=== PATIENT | male | born 1945 | race African-American/Black ===

== ENCOUNTER 2022-04-11 15:07 | Inpatient (IN) | payer OTHER, MEDICAID ==
[2022-04-11 15:52] LABS: #Eosinphils 0.5 thou/uL (0.0-0.7); #Lymphocytes 0.9 thou/uL (1.20-3.40); #Monocytes 0.5 thou/uL (0.11-0.59); #Neutrophils 6.2 thou/uL (1.40-6.50); %Basophils 0.5 % (0.0-1.0); %Eosinophils 5.6 % (0.0-10.0); %Lymphocytes 11.6 % (21.0-51.0); %Monocytes 5.5 % (0.0-10.0); %Neutrophils 76.8 % (42.0-75.0); Hemoglobin 12.5 g/dL (14.0-18.0); Mean Corpuscular HGB CONC 31.4 g/dL (32.0-36.0); Mean Corpuscular Hemoglobin 28.8 pg (27.0-31.0); Mean Corpuscular Volume 91.5 fL (78.0-98.0); Mean Platelet Volume 6.7 fL (7.4-10.4); Platelet Count 306 thou/uL (130-400); RBC Distribution Width 15.2 % (11.5-14.5); Red Blood Cell (RBC) Count 4.34 mill/uL (4.70-6.10); White Blood Cell (WBC) Count 8.1 thou/uL (4.8-10.8)
[2022-04-11 16:13] LABS: ALT (SGPT) 14 U/L (8-55); AST (SGOT) 28 U/L (5-34); Albumin 3.6 g/dL (3.4-4.8); Alkaline Phosphatase 160 U/L (40-110); Anion Gap 14 mmol/L (10-20); BUN (Urea Nitrogen) 36 mg/dL (8.4-25.7); Bilirubin, Total 0.6 mg/dL (0.2-1.2); Calc. Creatinine Clearance 0 mL/min (70-130); Calcium 8.9 mg/dL (7.8-10.44); Carbon Dioxide 17 mmol/L (23-31); Chloride 111 mmol/L (98-107); Estimated GFR 20; Globulin 5.6 g/dL (2.4-3.5); Glucose 71 mg/dL (83-110); Potassium 4.8 mmol/L (3.5-5.1); Protein, Total 9.2 g/dL (5.8-8.1); Sodium 137 mmol/L (136-145)
[2022-04-11 16:27] LABS: CKMB 4.3 ng/mL (0-6.6)
[2022-04-11] MEDS ORDERED: hydrALAZINE 20 MG/ML VIAL ONE (17:03)
[2022-04-11] MEDS ORDERED: hydrALAZINE 20 MG/ML VIAL SLOW IVP PRN (17:36)
[2022-04-11] MEDS ORDERED: Acetaminophen 500 MG TAB PO PRN (17:36)
[2022-04-11] MEDS ORDERED: Nitroglycerin 0.4 MG TAB (25 Tab Bottle) SL PRN (17:36)
[2022-04-11 18:04] LABS: Magnesium 1.8 mg/dL (1.6-2.6)
[2022-04-11] MEDS ORDERED: NIFEdipine XL 60 MG TAB PO SCH (20:15)
[2022-04-11 20:17] LABS: Troponin I 0.091 ng/mL (< 0.028)
[2022-04-11] MEDS: Heparin 5,000 UNITS/ML VIAL SC SCH (20:26)
[2022-04-11] MEDS ORDERED: Isosorbide Dinitrate 20 MG TAB PO SCH (22:30)
[2022-04-11] MEDS ORDERED: Carvedilol 25 MG TAB PO SCH (22:30)
[2022-04-11 22:33] LABS: Troponin I 0.075 ng/mL (< 0.028)
[2022-04-12 05:32] LABS: #Eosinphils 0.3 thou/uL (0.0-0.7); #Lymphocytes 0.8 thou/uL (1.20-3.40); #Monocytes 0.5 thou/uL (0.11-0.59); %Basophils 0.4 % (0.0-1.0); %Eosinophils 3.8 % (0.0-10.0); %Lymphocytes 11.7 % (21.0-51.0); %Monocytes 8.3 % (0.0-10.0); %Neutrophils 75.8 % (42.0-75.0); Hemoglobin 10.1 g/dL (14.0-18.0); Mean Corpuscular HGB CONC 31.1 g/dL (32.0-36.0); Mean Corpuscular Hemoglobin 28.7 pg (27.0-31.0); Mean Corpuscular Volume 92.1 fL (78.0-98.0); Platelet Count 262 thou/uL (130-400); RBC Distribution Width 15.5 % (11.5-14.5); Red Blood Cell (RBC) Count 3.53 mill/uL (4.70-6.10); White Blood Cell (WBC) Count 6.6 thou/uL (4.8-10.8)
[2022-04-12 05:49] LABS: ALT (SGPT) 11 U/L (8-55); AST (SGOT) 17 U/L (5-34); Albumin 2.8 g/dL (3.4-4.8); Alkaline Phosphatase 112 U/L (40-110); Anion Gap 15 mmol/L (10-20); BUN (Urea Nitrogen) 43 mg/dL (8.4-25.7); Bilirubin, Total 0.5 mg/dL (0.2-1.2); Calc. Creatinine Clearance 16 mL/min (70-130); Calcium 8.2 mg/dL (7.8-10.44); Carbon Dioxide 14 mmol/L (23-31); Chloride 112 mmol/L (98-107); Estimated GFR 17; Globulin 4.1 g/dL (2.4-3.5); Glucose 113 mg/dL (83-110); Potassium 4.9 mmol/L (3.5-5.1); Protein, Total 6.9 g/dL (5.8-8.1); Sodium 136 mmol/L (136-145)
[2022-04-12] MEDS ORDERED: Furosemide 40 MG/4 ML VIAL SLOW IVP SCH (06:00)
[2022-04-12] MEDS ORDERED: Carvedilol 25 MG TAB PO SCH (09:00)
[2022-04-12] MEDS ORDERED: Isosorbide Dinitrate 20 MG TAB PO SCH (09:00)
[2022-04-12] MEDS ORDERED: NIFEdipine XL 60 MG TAB PO SCH (09:00)
[2022-04-12] MEDS: Heparin 5,000 UNITS/ML VIAL SC SCH ×3 (09:21→21:06)
[2022-04-12] MEDS: NIFEdipine XL 60 MG TAB PO SCH (09:21)
[2022-04-12] MEDS: Tamsulosin HCl 0.4 MG CAP PO SCH ×2 (09:21→21:07)
[2022-04-12] MEDS: Aspirin Chewable 81 MG TAB PO SCH (09:22)
[2022-04-12] MEDS: Isosorbide Dinitrate 20 MG TAB PO SCH ×2 (09:22→21:07)
[2022-04-12] MEDS: Sodium Bicarbonate 150 MEQ in Dextrose 5% in Water 1,000 ML IV SCH (13:38)
[2022-04-12 14:22] LABS: Creatinine, Urine 100.09 mg/dL (63-166)
[2022-04-12] MEDS ORDERED: Dextrose 50% Abboject 50 ML SYRINGE SLOW IVP PRN (15:20)
[2022-04-12] MEDS ORDERED: Dextrose 5% in Water 1,000 ML IV PRN (15:20)
[2022-04-12] MEDS ORDERED: HumaLOG 300 UNITS/3 ML VIAL SC PRN (15:20)
[2022-04-12] MEDS: Carvedilol 6.25 MG TAB PO SCH (17:52)
[2022-04-12] MEDS: Mirtazapine 15 MG Soltab PO SCH (21:07)
[2022-04-12] MEDS: hydrALAZINE 25 MG TAB PO SCH (21:07)
[2022-04-13] MEDS: Sodium Bicarbonate 150 MEQ in Dextrose 5% in Water 1,000 ML IV SCH (06:30)
[2022-04-13] MEDS: Aspirin Chewable 81 MG TAB PO SCH (08:55)
[2022-04-13] MEDS: Tamsulosin HCl 0.4 MG CAP PO SCH ×2 (08:55→20:38)
[2022-04-13] MEDS: NIFEdipine XL 60 MG TAB PO SCH (08:55)
[2022-04-13] MEDS: Isosorbide Dinitrate 20 MG TAB PO SCH ×2 (08:55→20:38)
[2022-04-13] MEDS: Heparin 5,000 UNITS/ML VIAL SC SCH ×3 (08:56→20:38)
[2022-04-13] MEDS: Carvedilol 6.25 MG TAB PO SCH ×2 (08:56→17:19)
[2022-04-13] MEDS: hydrALAZINE 25 MG TAB PO SCH ×2 (08:56→20:38)
[2022-04-13 09:47] LABS: #Eosinphils 0.3 thou/uL (0.0-0.7); #Monocytes 0.5 thou/uL (0.11-0.59); #Neutrophils 3.5 thou/uL (1.40-6.50); %Basophils 0.9 % (0.0-1.0); %Eosinophils 6.1 % (0.0-10.0); %Lymphocytes 19.2 % (21.0-51.0); %Monocytes 8.4 % (0.0-10.0); %Neutrophils 65.5 % (42.0-75.0); Hemoglobin 9.8 g/dL (14.0-18.0); Mean Corpuscular HGB CONC 31.2 g/dL (32.0-36.0); Mean Corpuscular Hemoglobin 28.8 pg (27.0-31.0); Mean Corpuscular Volume 92.2 fL (78.0-98.0); Mean Platelet Volume 6.7 fL (7.4-10.4); Platelet Count 245 thou/uL (130-400); RBC Distribution Width 15.2 % (11.5-14.5); Red Blood Cell (RBC) Count 3.41 mill/uL (4.70-6.10); White Blood Cell (WBC) Count 5.4 thou/uL (4.8-10.8)
[2022-04-13 10:05] LABS: Anion Gap 16 mmol/L (10-20); BUN (Urea Nitrogen) 45 mg/dL (8.4-25.7); Calc. Creatinine Clearance 14 mL/min (70-130); Calcium 8.1 mg/dL (7.8-10.44); Carbon Dioxide 16 mmol/L (23-31); Chloride 107 mmol/L (98-107); Estimated GFR 15; Glucose 142 mg/dL (83-110); Potassium 3.9 mmol/L (3.5-5.1); Sodium 135 mmol/L (136-145)
[2022-04-13] MEDS: Mirtazapine 15 MG Soltab PO SCH (20:39)
[2022-04-14 04:59] LABS: Anion Gap 14 mmol/L (10-20); BUN (Urea Nitrogen) 47 mg/dL (8.4-25.7); Calc. Creatinine Clearance 14 mL/min (70-130); Carbon Dioxide 18 mmol/L (23-31); Chloride 109 mmol/L (98-107); Estimated GFR 15; Glucose 75 mg/dL (83-110); Potassium 4.1 mmol/L (3.5-5.1); Sodium 137 mmol/L (136-145)
[2022-04-14] MEDS: Tamsulosin HCl 0.4 MG CAP PO SCH (08:35)
[2022-04-14] MEDS: Carvedilol 6.25 MG TAB PO SCH (08:35)
[2022-04-14] MEDS: Aspirin Chewable 81 MG TAB PO SCH (08:35)
[2022-04-14] MEDS: NIFEdipine XL 60 MG TAB PO SCH (08:36)
[2022-04-14] MEDS: hydrALAZINE 25 MG TAB PO SCH (08:36)
[2022-04-14] MEDS: Isosorbide Dinitrate 20 MG TAB PO SCH (08:36)
[2022-04-14] MEDS: Heparin 5,000 UNITS/ML VIAL SC SCH (08:36)
[2022-04-14 09:13] VITALS: TEMP 97.9
[2022-04-14 13:42] VITALS: BP 176/78
== END 2022-04-14 13:53 | disposition home or self-care (01) | DRG 291 ==
LOC: ERS 15:07 → 2SW 17:18 → OBSVTOIN 04-12 09:32
PROVIDERS: ADMIT Internal Medicine; ATTEND Internal Medicine
DX: I13.0 Hypertensive heart and chronic kidney disease with heart failure and stage 1 through stage 4 chronic kidney disease, or unspecified chronic kidney disease (principal); I50.33 Acute on chronic diastolic (congestive) heart failure; N17.9 Acute kidney failure, unspecified; N18.4 Chronic kidney disease, stage 4 (severe); E87.2 Acidosis; E44.0 Moderate protein-calorie malnutrition; I16.1 Hypertensive emergency; Z20.822 Contact with and (suspected) exposure to COVID-19; I16.0 Hypertensive urgency; N40.0 Benign prostatic hyperplasia without lower urinary tract symptoms; E11.22 Type 2 diabetes mellitus with diabetic chronic kidney disease; I35.0 Nonrheumatic aortic (valve) stenosis; D63.1 Anemia in chronic kidney disease; E87.6 Hypokalemia; Z79.82 Long term (current) use of aspirin; Z85.038 Personal history of other malignant neoplasm of large intestine; Z79.899 Other long term (current) drug therapy; Z68.20 Body mass index [BMI] 20.0-20.9, adult
CPT/HCPCS: 36415; 36416; 71045; 76770; 80048; 80053; 82274; 82553; 82570; 83735; 83880; 84156; 84484; 85025; 93005; 93306; 93798; 96374; J0360; J1644; J1815; J1940; J7070; U0003; U0005